=== PATIENT | female | born 1965 | race African-American/Black ===

== ENCOUNTER 2017-09-20 06:17 | Emergency (ER) | payer OTHER, MEDICAID ==
[~2017-09-20] VITALS: Ht 170.2 cm; Wt 95.2 kg
[2017-09-20 06:46] VITALS: Ht 170.2 cm; Wt 95.2 kg
[2017-09-20 08:15] VITALS: BP 128/64
== END 2017-09-20 08:15 | disposition home or self-care (01) ==
LOC: ED 06:17
DX: B34.9 Viral infection, unspecified (principal); R19.7 Diarrhea, unspecified; L93.0 Discoid lupus erythematosus